=== PATIENT | female | born 1950 | race African-American/Black ===

== ENCOUNTER 2023-11-23 14:32 | Emergency (ER) | payer OTHER ==
[~2023-11-23] VITALS: Ht 157.5 cm; Wt 70.0 kg
[2023-11-23 14:44] VITALS: O2SAT 100
[2023-11-23 15:22] LABS: HEMATOCRIT. 37.6 % (36.0-48.0); HEMOGLOBIN. 12.2 g/dL (12.0-16.0); MEAN CORPUSCULAR HEMOGLOBIN 27.4 pg (28.0-32.0); MEAN CORPUSCULAR HGB CONC 32.3 g/dL (31.0-37.0); MEAN CORPUSCULAR VOLUME 84.7 fL (81.0-99.0); MEAN PLATELET VOLUME 7.2 fl (7.4-10.4); PLATELET 222 x1000/uL (130-400); RED BLOOD CELL COUNT 4.44 mill/uL (4.2-5.4); RED CELL DISTRIBUTION WIDTH 14.7 % (11.6-14.6); WHITE BLOOD COUNT 8.6 x1000/uL (4.5-11.0)
[2023-11-23 15:29] LABS: DIFFERENTIAL COMMENT 1
[2023-11-23 15:33] LABS: ALANINE AMINOTRANSFERASE 16 IU/L (10-49); ALBUMIN 4.8 g/dL (3.2-4.8); ASPARTATE AMINOTRANSFERASE 25 IU/L (<34); BILIRUBIN TOTAL 0.8 mg/dL (0.1-1.0); CALCIUM 9.3 mg/dL (8.7-10.4); CARBON DIOXIDE 28 mEq/L (21-32); CHLORIDE 103 mEq/L (98-107); CREATININE 0.9 mg/dL (0.6-1.0); GLUCOSE 163 mg/dL (70-105); POTASSIUM 3.9 mEq/L (3.5-5.1); PROTEIN TOTAL 7.6 g/dL (6.0-8.3); SODIUM 138 mEq/L (136-145); UREA NITROGEN BLOOD 22 mg/dL (9-23)
[2023-11-23 17:20] LABS: PLATELET ESTIMATE NORMAL
[2023-11-23 17:22] LABS: ANISOCYTOSIS 1+
[2023-11-23] MEDS: SODIUM CHLORIDE 0.9% 1,000 ML IV ONE (18:03)
[2023-11-23] MEDS: FAMOTIDINE 20MG/2ML VIAL IV ONE (18:04)
[2023-11-23] MEDS: ONDANSETRON HCL 4MG/2ML INJ IV ONE (18:04)
[2023-11-23 18:07] LABS: CLARITY URINE CLEAR (CLEAR); COLOR URINE YELLOW (YELLOW); GLUCOSE URINE NEGATIVE (NEGATIVE); KETONES URINE NEGATIVE (NEGATIVE); LEUKOCYTE ESTERASE URINE NEGATIVE (NEGATIVE); NITRITE URINE NEGATIVE (NEGATIVE); OCCULT BLOOD URINE NEGATIVE (NEGATIVE); PH URINE 5.5 (4.5-8.0); PROTEIN URINE TRACE (NEGATIVE); SPECIFIC GRAVITY URINE 1.028 (1.005-1.030); UROBILINOGEN URINE 0.2 E.U./dL (0.2-1.0)
[2023-11-23 19:01] LABS: BACTERIA URINE TRACE; RBC URINE 0-2 /hpf (0-2); SQUAMOUS EPITHELIAL CELL URINE FEW /lpf (RARE/1+); WBC URINE 0-2 /hpf (0-2)
[2023-11-23] MEDS: METOCLOPRAMIDE HCL 10MG/2ML VIAL IV NR (19:09)
[2023-11-23] MEDS ORDERED: CLONIDINE 0.1MG TABLET PO ONE (22:15)
[2023-11-23] MEDS ORDERED: ACET-2708 PO (22:30)
[2023-11-23] MEDS ORDERED: OMEP20CA14 MT (22:30)
[2023-11-23] MEDS ORDERED: ONDA4TAB50 PO (22:30)
[2023-11-23 22:35] VITALS: BP 123/80; PULSE 79; RESP 17; TEMP 100.2
== END 2023-11-23 22:45 | disposition home or self-care (01) ==
LOC: ER 14:32
DX: K52.9 Noninfective gastroenteritis and colitis, unspecified (principal); K20.80 Other esophagitis without bleeding; K44.9 Diaphragmatic hernia without obstruction or gangrene; E27.8 Other specified disorders of adrenal gland; I10 Essential (primary) hypertension
CPT/HCPCS: 80053; 81003; 83690; 85025; 36415; 74176; 96361; 96374; 96375; 99285; J3490; J2765; J2405; J7030; Z7610 ×3